=== PATIENT | female | born 1940 | race Caucasian/White ===

== ENCOUNTER 2017-10-22 13:27 | Emergency (ER) | payer MEDICARE ==
[2017-10-22] MEDS ORDERED: Ondansetron HCl/PF 4 MG/2 ML Vial ONE (14:28)
[2017-10-22 14:33] LABS: #Basophils 0.1 thou/uL (0.0-0.2); #Eosinphils 0.1 thou/uL (0.0-0.7); #Lymphocytes 2.2 thou/uL (1.20-3.40); #Monocytes 0.8 thou/uL (0.11-0.59); %Basophils 1.2 % (0.0-1.0); %Eosinophils 1.5 % (0.0-10.0); %Lymphocytes 30.5 % (21.0-51.0); %Monocytes 11.1 % (0.0-10.0); Hematocrit 46.4 % (36.0-47.0); Mean Platelet Volume 8.1 fL (7.4-10.4); Red Blood Cell (RBC) Count 4.78 mill/uL (4.20-5.40); White Blood Cell (WBC) Count 7.2 thou/uL (4.8-10.8)
[2017-10-22 14:57] LABS: ALT (SGPT) 18 U/L (8-55); AST (SGOT) 23 U/L (5-34); Alkaline Phosphatase 61 U/L (40-150); Anion Gap 14 mmol/L (10-20); BUN (Urea Nitrogen) 15 mg/dL (9.8-20.1); Bilirubin, Total 0.5 mg/dL (0.2-1.2); CK (CPK) 83 U/L (29-168); Calc. Creatinine Clearance 0 mL/min (70-130); Calcium 9.8 mg/dL (7.8-10.44); Carbon Dioxide 22 mmol/L (23-31); Chloride 106 mmol/L (98-107); Estimated GFR-MDRD 84; Lipase 9 U/L (8-78); Protein, Total 7.1 g/dL (6.0-8.3); Troponin I 0.011 ng/mL (< 0.028)
--- NOTE | 2017-10-22 15:43 | CT ---
CT OF ABDOMEN AND PELVIS PERFORMED WITH CONTRAST ENHANCEMENT: HISTORY: Abdomen pain for the last few weeks also with diarrhea. FINDINGS: The lung bases show chronic change. No focal infiltrative process. Small hypodensity within the left lobe of the liver, statistically most likely a cyst. The liver dexter ws a suggestion of fatty change. The spleen is within normal limits of size. Pancreas and gallbladd er regions are unremarkable. Right and left adrenal glands are normal. Hypodensities involving both kidneys, most likely cysts. There is no significant periaortic or mesenteric adenopathy. CT OF PELVIS PERFORMED WITH CONTRAST ENHANCEMENT: Minimal sigmoid diverticulosis is noted. The appendix is unremarkable. There is no evidence of tamra opathy, mass, or free fluid. IMPRESSION: 1. Hypodensities involving the kidneys and left lobe of the liver, most likely cysts. 2. Minimal sigmoid diverticulosis. 3. Chronic lung change. POS: [facility]
[2017-10-22 16:19] LABS: Bilirubin Negative (Negative); Blood, Urine Negative (Negative); Glucose, Urine (Dipstick) Negative (Negative); Ketone, Urine 15 mg/dL (Negative); Nitrite Negative (Negative); Protein, Urine (Dipstick) Negative (Neg-Trace); Urobilinogen 0.2 mg/dL (0.2-1.0)
--- NOTE | 2017-10-22 17:15 | RAD ---
PORTABLE CHEST: 10/22/17 HISTORY: Abdominal pain, diarrhea. Heart size and mediastinum are within normal limits. The lungs are clear of any infiltrative process. There are no significant bony findings. IMPRESSION: No active intrathoracic disease. POS: [facility]
== END 2017-10-22 16:02 | disposition home or self-care (01) ==
LOC: ERS 13:27
DX: E86.0 Dehydration (principal); E78.00 Pure hypercholesterolemia, unspecified; Z79.899 Other long term (current) drug therapy
CPT/HCPCS: 71010; 74177; 80053; 81003; 82553; 83690; 84484; 85025; 93005; 96361; 96374; J2405